=== PATIENT | male | born 2000 | race Caucasian/White ===

== ENCOUNTER 2024-09-29 19:38 | Observation (INO) ==
--- NOTE | 2024-09-29 20:39 | XRay Report ---
Exam(s): XR CXR 1 VIEW EXAM: XR Chest, 1 View CLINICAL HISTORY: Reason for exam: SOB. TECHNIQUE: Frontal view of the chest. COMPARISON: 09/23/2024 FINDINGS: Lungs: Mild air space opacity at the right lung base, atelectasis versus infiltrate. The left lung is clear. Pleural space: No pleural effusion. No pneumothorax. Heart: Unremarkable. No cardiomegaly. IMPRESSION: Mild air space opacity at the right lung base, atelectasis versus infiltrate. Electronically signed by: Yong Martinez MD 09/29/24 20:37 PM
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
[2024-09-29 22:14] LABS: Basophils # (auto) 0.04 K/uL (0.00-0.20); Basophils % (auto) 0.8 %; Eosinophils # (auto) 0.08 K/uL (0.00-0.50); Eosinophils % (auto) 1.5 %; Hematocrit (blood only) 25.2 % (42.0-52.0); Hemoglobin 8.6 g/dl (14.0-18.0); Immature Granulocytes # (auto) 0.01 K/uL (0.01-0.20); Immature Granulocytes % (auto) 0.2 %; Lymphocytes # (auto) 1.41 K/uL (1.20-3.40); Lymphocytes % (auto) 26.8 %; Mean Corpuscular Hemoglobin 30.2 pg (25.0-34.0); Mean Corpuscular Hgb Conc 34.1 g/dL (32.0-36.0); Mean Corpuscular Volume 88.4 fL (80.0-100.0); Mean Platelet Volume 9.6 fL (9.4-12.4); Monocytes # (auto) 0.68 K/uL (0.11-0.59); Monocytes % (auto) 12.9 %; Neutrophils # (auto) 3.04 K/uL (1.40-6.50); Neutrophils % (auto) 57.8 %; Platelet Count 240 K/uL (130-400); RDW Coefficient of Variation 13.7 % (11.5-14.5); RDW Standard Deviation 40.9 fL (36.4-46.3); Red Blood Count 2.85 M/uL (4.70-6.10); White Blood Count 5.26 K/ul (4.8-10.8)
[2024-09-29] MEDS: OPTIRAY 320 125ml IV ONE (22:19)
[2024-09-29 22:26] LABS: iSTAT Hemoglobin 7.5 g/dl (14.0-18.0); iSTAT Ionized Calcium 1.14 mmol/l (1.12-1.32); iSTAT Potassium 3.1 mmol/L (3.3-5.0)
[2024-09-29 22:32] LABS: Troponin I High Sensitivity 6.6 pg/ml (0-20)
[2024-09-29 22:34] LABS: Partial Thromboplastin Ratio 1.1; Partial Thromboplastin Time 30 Seconds (21-31); Prothrombin Time 10.9 Seconds (9.0-12.0)
[2024-09-29 23:02] LABS: Albumin Level 4.1 gm/dl (3.4-5.0); Bilirubin,Total 0.6 mg/dl (0.2-1.0); Calcium 8.8 mg/dl (8.6-10.3); Potassium 3.4 mmol/L (3.5-5.1)
[2024-09-29 23:08] LABS: Albumin Globulin Ratio 1.7 (0.9-2); BUN Creatinine Ratio 21.4 (10-20); Creatinine Clr Calc Pharmacy 128.7 ml/min; Globulin 2.4 gm/dl (2.5-4.0); Total Protein 6.5 gm/dl (6.0-8.3)
--- NOTE | 2024-09-29 23:55 | CT Scan Report ---
Exam(s): CTA CHEST IV Amt: 119ml optiray 320 EXAM: CT Angiography Chest With Intravenous Contrast CLINICAL HISTORY: dyspnea, recent chest tube. TECHNIQUE: Axial computed tomographic angiography images of the chest with intravenous contrast. CTDI is 37.1 mGy and DLP is 856.71 mGy-cm. Automated exposure control was utilized for the study. A dose lowering technique was utilized adhering to the principles of ALARA. MIP reconstructed images were created and reviewed. CONTRAST: 119 mL Optiray 320 COMPARISON: No relevant prior studies available. FINDINGS: Limitations: There is extensive diffuse respiratory artifact, which degrades image quality throughout the examination. Pulmonary arteries: Accounting for limitations with diffuse extensive respiratory artifact, there is no definite evidence for pulmonary embolism. Several distal subsegmental branches are of limited diagnostic quality. Aorta: No acute findings. No thoracic aortic aneurysm. Lungs: Evaluation of the lungs is somewhat limited without contrast. There is a small amount of fluid tracking in the lateral aspect of the major fissure. Curvilinear changes involving the right lateral anterobasal segment and asymmetric subsegmental changes in the posterior right lower lobe. No consolidation. Pleural space: Subtle minimal gas along the lateral margin of the right lung in the tracking fluid in the major fissure and adjacent to the curvilinear changes in the right anterobasal segments. No significant pneumothorax. No pleural effusion. Heart: Unremarkable. No cardiomegaly. No significant pericardial effusion. Mediastinum: Residual thymic tissue noted in the anterior mediastinum. Bones/joints: No acute fracture. No dislocation. Soft tissues: There is asymmetric swelling and heterogeneity involving the lateral right thoracic chest wall inferiorly, incompletely included with scattered minimal gas internally. Lymph nodes: Unremarkable. No enlarged lymph nodes. IMPRESSION: 1. Accounting for limitations with diffuse extensive respiratory artifact, there is no definite evidence for pulmonary embolism. Several distal subsegmental branches are of limited diagnostic quality. 2. Evaluation of the lungs is somewhat limited without contrast. There is a small amount of fluid tracking in the lateral aspect of the major fissure. Curvilinear changes involving the right lateral anterobasal segment and asymmetric subsegmental changes in the posterior right lower lobe. Suspect residual atelectasis. Trace gas along the lateral margin of the right lung. No significant residual pneumothorax. 3. There is asymmetric swelling and heterogeneity involving the lateral right thoracic chest wall inferiorly, incompletely included with scattered minimal gas internally. Suspect intramuscular hemorrhagic products. Electronically signed by: Matias Varela MD 09/29/24 23:54 PM
[2024-09-30] MEDS ORDERED: POLYETHYLENE (MIRALAX) 17 GM PACK PO PRN (02:07)
[2024-09-30] MEDS ORDERED: ACETAMINOPHEN 325 MG TAB PO PRN (02:07)
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
[2024-09-30 06:31] VITALS: O2SAT 98
[2024-09-30 07:33] VITALS: RESP 16; TEMP 98.2
[2024-09-30 08:32] LABS: Basophils # (auto) 0.04 K/uL (0.00-0.20); Basophils % (auto) 0.8 %; Eosinophils # (auto) 0.09 K/uL (0.00-0.50); Eosinophils % (auto) 1.8 %; Hematocrit (blood only) 24.5 % (42.0-52.0); Hemoglobin 8.4 g/dl (14.0-18.0); Immature Granulocytes # (auto) 0.03 K/uL (0.01-0.20); Immature Granulocytes % (auto) 0.6 %; Lymphocytes # (auto) 0.76 K/uL (1.20-3.40); Lymphocytes % (auto) 15.2 %; Mean Corpuscular Hemoglobin 30.8 pg (25.0-34.0); Mean Corpuscular Hgb Conc 34.3 g/dL (32.0-36.0); Mean Corpuscular Volume 89.7 fL (80.0-100.0); Mean Platelet Volume 9.8 fL (9.4-12.4); Monocytes # (auto) 0.89 K/uL (0.11-0.59); Monocytes % (auto) 17.8 %; Neutrophils # (auto) 3.19 K/uL (1.40-6.50); Neutrophils % (auto) 63.8 %; Platelet Count 249 K/uL (130-400); RDW Standard Deviation 43.1 fL (36.4-46.3); Red Blood Count 2.73 M/uL (4.70-6.10)
[2024-09-30 08:47] LABS: BUN Creatinine Ratio 20.9 (10-20); Calcium 9.3 mg/dl (8.6-10.3); Creatinine Clr Calc Pharmacy 146.6 ml/min; Magnesium 1.9 mg/dl (1.7-2.4); Potassium 3.7 mmol/L (3.5-5.1)
--- NOTE | 2024-09-30 08:59 | Electrocardiogram Report ---
Test Reason : Blood Pressure : */* mmHG Vent. Rate : 87 BPM Atrial Rate : 87 BPM P-R Int : 160 ms QRS Dur : 90 ms QT Int : 342 ms P-R-T Axes : 60 68 3 degrees QTcB Int : 411 ms Normal sinus rhythm Normal ECG When compared with ECG of 23-Sep-2024 17:55, No significant change was found Confirmed by Sharad Cárdenas ([id number]) on 09/30/2024 8:58:58 AM Referred By: [facility] Confirmed By: Sharad Cárdenas
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
[2024-09-30 13:58] VITALS: BP 113/59
[2024-09-30 14:22] VITALS: PULSE 83
== END 2024-09-30 15:01 ==
LOC: EDINP 19:38 → ED 19:38 → 2W 09-30 02:07